=== PATIENT | male | born 1950 | race Caucasian/White ===

== ENCOUNTER 2018-11-02 09:07 | Inpatient (IN) | payer BC ==
[2018-10-30 10:21] VITALS: BMI 32.3
[2018-11-02 10:40] LABS: #Eosinphils 0.3 thou/uL (0.0-0.7); #Lymphocytes 2.6 thou/uL (1.20-3.40); #Monocytes 0.8 thou/uL (0.11-0.59); #Neutrophils 2.4 thou/uL (1.40-6.50); %Basophils 0.5 % (0.0-1.0); %Eosinophils 5.4 % (0.0-10.0); %Lymphocytes 42.5 % (21.0-51.0); %Monocytes 12.5 % (0.0-10.0); %Neutrophils 39.2 % (42.0-75.0); Hemoglobin 14.7 g/dL (14.0-18.0); Mean Corpuscular HGB CONC 35.1 g/dL (32.0-36.0); Mean Corpuscular Hemoglobin 34.7 pg (27.0-31.0); Mean Corpuscular Volume 98.7 fL (78.0-98.0); Mean Platelet Volume 7.9 fL (7.4-10.4); Platelet Count 158 thou/uL (130-400); RBC Distribution Width 10.9 % (11.5-14.5); Red Blood Cell (RBC) Count 4.25 mill/uL (4.70-6.10)
[2018-11-02 10:54] LABS: Anion Gap 11 mmol/L (10-20); BUN (Urea Nitrogen) 16 mg/dL (8.4-25.7); Calc. Creatinine Clearance 81 mL/min (70-130); Calcium 9.4 mg/dL (7.8-10.44); Carbon Dioxide 26 mmol/L (23-31); Chloride 105 mmol/L (98-107); Estimated GFR-MDRD 64; Glucose 88 mg/dL (80-115); Potassium 3.9 mmol/L (3.5-5.1); Sodium 138 mmol/L (136-145)
[2018-11-02] MEDS ORDERED: Fentanyl 100 MCG/2 ML VIAL ONE ×3 (13:06→15:42)
[2018-11-02] MEDS ORDERED: Midazolam HCl 2 mg/2 ml Vial ONE (13:07)
[2018-11-02] MEDS ORDERED: Sodium Chloride 0.9% 10 ML ONE (13:15)
--- NOTE | 2018-11-02 14:55 | OP ---
DATE OF PROCEDURE: 11/02/2018 HARBOR MASTER: Nicho Camargo PA-C PROCEDURE PERFORMED: L4 through S1 laminectomy. DESCRIPTION OF PROCEDURE: The patient was brought to the operating room and intubated. He was rolled in a prone position on gel-filled chest rolls. An incision was made exposing L4 through S1 and the level was confirmed by x-ray. We performed complete L5, inferior L4, and superior S1 laminectomies, completely compressed the affected neural elements. The wound was then extensively irrigated. MAC hemostasis was secured. Vancomycin powder was applied and the wound was closed in anatomic layers over drain. Job ID: [id number]
[2018-11-02] MEDS ORDERED: Promethazine HCl 25 MG/ML VIAL IM/IV PRN (15:59)
[2018-11-02] MEDS ORDERED: Ondansetron HCl/PF 4 MG/2 ML Vial IVP PRN (15:59)
[2018-11-02] MEDS ORDERED: Non-Formulary Medication 1 EACH PO PRN (15:59)
[2018-11-02] MEDS ORDERED: Acetaminophen/Codeine 30-300mg Tablet PO PRN ×2 (16:01)
[2018-11-02] MEDS ORDERED: Mag-Al 1200 mg/1200 mg/30 ML UDCUP PO PRN (16:01)
[2018-11-02] MEDS ORDERED: diphenhydrAMINE 50 MG/ML VIAL IVP PRN (16:01)
[2018-11-02] MEDS ORDERED: HYDROcodone/Acetaminophen 10/325 mg Tablet PO PRN (16:01)
[2018-11-02] MEDS ORDERED: tiZANidine HCl 4 MG TAB PO PRN (16:01)
[2018-11-02] MEDS ORDERED: diphenhydrAMINE 25 MG CAP PO PRN (16:01)
[2018-11-02] MEDS ORDERED: Promethazine HCl 25 MG/ML VIAL IM PRN (16:01)
[2018-11-02] MEDS ORDERED: Milk Of Magnesia 30 ML UDCUP PO PRN (16:01)
[2018-11-02] MEDS ORDERED: Promethazine HCl 12.5 MG SUPP PR PRN (16:01)
[2018-11-02] MEDS ORDERED: Promethazine 25 MG TAB PO PRN (16:01)
[2018-11-02] MEDS ORDERED: traMADol HCl 50 MG TAB PO PRN ×2 (16:01)
[2018-11-02] MEDS ORDERED: Ondansetron PF 4 MG/2 ML Vial SLOW IVP PRN (16:05)
[2018-11-02] MEDS ORDERED: Morphine 2 MG/ML SYRINGE SLOW IVP PRN (16:07)
[2018-11-02] MEDS ORDERED: Morphine 4 MG/ML VIAL SLOW IVP PRN (16:09)
[2018-11-02] MEDS ORDERED: Rocuronium Bromide 10 MG/ML (10ML VIAL) ONE (17:17)
[2018-11-02] MEDS ORDERED: Lidocaine 1% PF 5 ML VIAL ONE (17:17)
[2018-11-02] MEDS ORDERED: Ondansetron PF 4 MG/2 ML Vial ONE (17:17)
[2018-11-02] MEDS ORDERED: PROPOFOL 200 MG/20 ML VIAL ONE (17:17)
[2018-11-02] MEDS ORDERED: Succinylcholine Chloride 20 MG/ML 10 ml SYRINGE FS ONE (17:17)
[2018-11-02] MEDS: Sodium Chloride 0.9% 1,000 ML IV SCH (18:50)
[2018-11-02] MEDS: CEFAZOLIN 2 GM in Premix Bag 1 BAG IVPB SCH (22:22)
[2018-11-02] MEDS: HYDROcodone/Acetaminophen 10/325 mg Tablet PO PRN (23:35)
[2018-11-03] MEDS: CEFAZOLIN 2 GM in Premix Bag 1 BAG IVPB SCH ×3 (05:24→21:27)
[2018-11-03] MEDS: Sodium Chloride 0.9% 1,000 ML IV SCH ×2 (05:24→15:06)
[2018-11-03] MEDS: HYDROcodone/Acetaminophen 10/325 mg Tablet PO PRN ×3 (05:26→21:26)
--- NOTE | 2018-11-03 07:53 | PRG ---
DATE OF SERVICE: 11/03/2018 SUBJECTIVE: The patient is a 68-year-old male, who underwent L4-S1 laminectomy. This is postoperative day #1. Following the surgery, he was transitioned to the Med/Surg floor, where his pain has been well controlled with p.o. medications, he is tolerating regular diet, and he is voiding appropriately. He did have NILS drain placed intraoperatively and has had approximately 130 mL of output overnight. OBJECTIVE: On exam this morning, the patient is sitting up on the side of bed, awake, alert, no acute distress. He has free active range of motion of all extremities. His incision is clean, dry, and intact. There is small amount of dark red blood in the NILS. PLAN: We will plan to continue to monitor the patient additional night and leave NILS additional night. We will continue to mobilize with physical therapy appropriately. I anticipate NILS drain can likely be removed tomorrow and the patient could be discharged at that time. Job ID: [id number]
[2018-11-03] MEDS ORDERED: tiZANidine HCl 4 MG TAB PO PRN (15:55)
[2018-11-03] MEDS: Fish Oil 1,000 MG CAP PO SCH (20:27)
[2018-11-03] MEDS: Carvedilol 3.125 MG TAB PO SCH (20:28)
[2018-11-03] MEDS ORDERED: Losartan 25 MG TAB PO SCH (21:00)
[2018-11-03] MEDS ORDERED: Atorvastatin Calcium 20 MG TAB PO SCH (21:00)
[2018-11-03] MEDS ORDERED: GLUCOSAMINE CHONDROITIN PO SCH (21:00)
[2018-11-04] MEDS: CEFAZOLIN 2 GM in Premix Bag 1 BAG IVPB SCH (05:23)
[2018-11-04] MEDS: HYDROcodone/Acetaminophen 10/325 mg Tablet PO PRN (05:33)
[2018-11-04] MEDS: Sodium Chloride 0.9% 1,000 ML IV SCH (07:30)
[2018-11-04 08:06] VITALS: BP 121/68; TEMP 98.1
[2018-11-04] MEDS: Carvedilol 3.125 MG TAB PO SCH (08:25)
[2018-11-04] MEDS: Fish Oil 1,000 MG CAP PO SCH (08:25)
[2018-11-04] MEDS ORDERED: Ascorbic Acid 500 mg Chewable Tablet PO SCH (09:00)
[2018-11-04] MEDS ORDERED: Losartan 25 MG TAB PO SCH (09:00)
--- NOTE | 2018-11-04 10:14 | DIS ---
DATE OF ADMISSION: 11/02/2018 DATE OF DISCHARGE: 11/04/2018 The patient is a 68-year-old male, recently seen in our office for low back pain and neurogenic claudication, who underwent L4-S1 laminectomy. Following the surgery, he was transitioned to the Med/Surg floor, where his pain was well controlled with p.o. medications, he was tolerating regular diet, and he was voiding appropriately. He did have NILS drain placed intraoperatively, which had initially 140 mL out the first night and this trended down nicely. There was 50 mL of drainage on postoperative night number 2 and was removed on postoperative day #2. I have discussed home care precautions. We will plan to follow up with the patient in 2 weeks. He has been provided with scripts for Dewitt and Zanaflex. Job ID: [id number]
--- NOTE | 2018-11-04 16:40 | EKG ---
Test Reason : PRREOP Blood Pressure : / mmHG Vent. Rate : 054 BPM Atrial Rate : 054 BPM P-R Int : 160 ms QRS Dur : 128 ms QT Int : 472 ms P-R-T Axes : 065 048 -08 degrees QTc Int : 447 ms Sinus bradycardia Left bundle branch block Abnormal ECG No previous ECGs available Confirmed by DR. Wilian MILLIGAN ([id number]) on 11/04/2018 4:39:58 PM Referred By: KAYLEE Confirmed By:DR. Wilian MILLIGAN
== END 2018-11-04 10:30 | disposition home or self-care (01) | DRG 517 ==
LOC: SDC 09:07 → SURG A 15:22
PROVIDERS: ADMIT Neurological Surgery; ATTEND Neurological Surgery
PROC: 01NB0ZZ Release Lumbar Nerve, Open Approach (ICD-10-PCS; principal; 2018-11-02)
PROC: 01NR0ZZ Release Sacral Nerve, Open Approach (ICD-10-PCS; 2018-11-02)
DX: M48.062 Spinal stenosis, lumbar region with neurogenic claudication (principal); I10 Essential (primary) hypertension; E78.5 Hyperlipidemia, unspecified; G47.00 Insomnia, unspecified; Z87.891 Personal history of nicotine dependence; Z98.890 Other specified postprocedural states
CPT/HCPCS: 76000; 80048; 85025; 93005; 93010; J0690; J2001; J2250; J2405; J2704; J3010; J3370; J3490

== ENCOUNTER 2020-01-30 07:25 | Inpatient (IN) | payer MEDICARE ==
[2020-01-30 08:23] LABS: Hemoglobin 12.8 g/dL (14.0-18.0); Mean Corpuscular HGB CONC 33.9 g/dL (32.0-36.0); Mean Corpuscular Hemoglobin 33.7 pg (27.0-31.0); Mean Corpuscular Volume 99.3 fL (78.0-98.0); RBC Distribution Width 10.6 % (11.5-14.5); Red Blood Cell (RBC) Count 3.79 mill/uL (4.70-6.10)
[2020-01-30 08:39] LABS: ALT (SGPT) 35 U/L (8-55); AST (SGOT) 31 U/L (5-34); Albumin 3.5 g/dL (3.4-4.8); Alkaline Phosphatase 52 U/L (40-110); Anion Gap 18 mmol/L (10-20); BUN (Urea Nitrogen) 20 mg/dL (8.4-25.7); Bilirubin, Total 0.6 mg/dL (0.2-1.2); Calc. Creatinine Clearance 0 mL/min (70-130); Calcium 8.1 mg/dL (7.8-10.44); Carbon Dioxide 21 mmol/L (23-31); Chloride 105 mmol/L (98-107); Glucose 137 mg/dL (80-115); Potassium 4.6 mmol/L (3.5-5.1); Protein, Total 6.5 g/dL (5.8-8.1); Sodium 139 mmol/L (136-145)
--- NOTE | 2020-01-30 08:39 | RAD ---
PORTABLE CHEST 1 VIEWS: Date: 01/30/2020 Time: 0753 hours HISTORY: Shortness of breath. Patient recently tested positive for COVID-19. FINDINGS: The heart size is normal. The lungs are well expanded with multifocal patchy opacities bilaterally. N o pneumothoraces or pleural effusions are seen. IMPRESSION: Findings are suspicious for COVID-19 pneumonia. POS: OFF
[2020-01-30] MEDS ORDERED: Dexamethasone 10 MG/ML VIAL ONE (09:01)
[2020-01-30 09:09] LABS: #Lymphocytes 0.8 thou/uL (1.20-3.40); #Monocytes 0.4 thou/uL (0.11-0.59); #Neutrophils 6.8 thou/uL (1.40-6.50); %Basophils 0.3 % (0.0-1.0); %Eosinophils 0.1 % (0.0-10.0); %Lymphocytes 9.7 % (21.0-51.0); %Monocytes 4.5 % (0.0-10.0); %Neutrophils 85.4 % (42.0-75.0); Mean Platelet Volume 7.7 fL (7.4-10.4); Platelet Count 113 thou/uL (130-400); Platelet Morphology Comment Appears Decreased
[2020-01-30] MEDS ORDERED: Acetaminophen 325 MG TAB PO PRN (13:00)
[2020-01-30] MEDS ORDERED: Ondansetron ODT 4 MG TAB SL PRN (13:00)
[2020-01-30] MEDS ORDERED: Ondansetron PF 4 MG/2 ML Vial IVP PRN ×2 (13:00→13:19)
[2020-01-30] MEDS ORDERED: Ondansetron ODT 4 MG TAB PO PRN (13:19)
[2020-01-30] MEDS ORDERED: Enoxaparin Sodium 40 MG/0.4 ML SYRINGE SC SCH (13:19)
[2020-01-30] MEDS ORDERED: hydrALAZINE 20 MG/ML VIAL SLOW IVP PRN (13:19)
[2020-01-30] MEDS ORDERED: Albuterol Sulfate 2.5 mg/3 ml Neb NEB SCH (14:15)
[2020-01-30] MEDS ORDERED: Albuterol 200 PUFF (6.7GM INHALER) INH SCH (15:00)
[2020-01-30] MEDS: cefTRIAXone\\ROCEPHIN 2 GM in Sodium Chloride 0.9% 100 ML IVPB SCH (15:09)
--- NOTE | 2020-01-30 15:24 | HP ---
PRIMARY CARE PROVIDER: Young Gallagher MD CHIEF COMPLAINT: Shortness of breath. HISTORY OF PRESENT ILLNESS: This is a 69-year-old male who presents to [facility] Emergency Department complaining of 2- to 3-day history of increasing shortness of breath, worsening in the last 24 hours. The patient's history is significant for COVID-19 diagnosis on 01/27/2020 after his tested positive. The patient states multiple family members have tested positive for COVID-19, but thought that he could deal with the virus at home. The patient noted increased shortness of breath with minimal exertion, especially walking, that became progressive, prompting him to seek medical attention and called EMS personnel. The patient's O2 saturation was noted in the mid 80% range on room air, at which point the patient was placed on oxygen supplementation and transported to the emergency room for evaluation. Chest imaging performed in the emergency room showed bilateral patchy infiltrates, consistent with a COVID-19 pneumonia. In the emergency room, the patient received IV dexamethasone 6 mg x1 and was referred to the hospitalist service for evaluation. PAST MEDICAL HISTORY: 1. Hypertension. 2. Hyperlipidemia. 3. Question of sleep apnea. 4. Lumbar disk disease. PAST SURGICAL HISTORY: Status post L4 through S1 laminectomy. CURRENT MEDICATIONS: 1. Enteric-coated aspirin 81 mg p.o. daily. 2. Lipitor 10 mg p.o. nightly. 3. Candesartan 32 mg p.o. nightly. 4. Carvedilol 3.125 mg p.o. b.i.d. 5. [place]-3 fatty acids 2000 mg p.o. b.i.d. 6. Vitamin C 500 mg p.o. daily. ALLERGIES: NO KNOWN DRUG ALLERGIES. FAMILY HISTORY: Positive for hypertension. SOCIAL HISTORY: Resides in [place], [place]. Retired. . No current alcohol, tobacco, or illicit drug use. REVIEW OF SYSTEMS: CONSTITUTIONAL: Negative for weight loss or gain, ability to conduct usual activities. SKIN: Negative for rash, itching. EYES: Negative for double vision, pain. ENT/MOUTH: Negative for nose bleeding, neck stiffness, pain, tenderness. CARDIOVASCULAR: Negative for palpitations, dyspnea on exertion, orthopnea. RESPIRATORY: Negative for wheezing, cough, hemoptysis, fever or night sweats. GASTROINTESTINAL: Negative for poor appetite, abdominal pain, heartburn, nausea, vomiting, constipation, or diarrhea. GENITOURINARY: Negative for urgency, frequency, dysuria, nocturia. MUSCULOSKELETAL: Negative for pain, swelling. NEUROLOGIC/PSYCHIATRIC: Negative for anxiety, depression. ALLERGY/IMMUNOLOGIC: Negative for skin rash, bleeding tendency. Otherwise negative except as stated per HPI. PHYSICAL EXAMINATION: VITAL SIGNS ON ADMISSION: Blood pressure 159/91, pulse 73, respiratory rate 17, temperature 98.8 degrees Fahrenheit, O2 saturation 97% on 4 L/minute by nasal cannula. GENERAL APPEARANCE: This is a 69-year-old male, alert and oriented x3, pleasant, responsive, in no acute distress. HEENT: Pupils are equal, round, and reactive to light and accommodation. Extraocular muscles are intact. No scleral icterus. No conjunctival injection. Nares patent. OP is clear. Teeth in good repair. NECK: Supple. No cervical adenopathy. No thyromegaly. No carotid bruits. No JVD appreciated. Cervical spine with full active and passive range of motion. No meningeal signs noted. CHEST: Scattered rhonchi bilaterally with diminished breath sounds in the bases. Positive tachypnea. CARDIOVASCULAR: S1 and S2 without noted murmur, rub, or gallop. ABDOMEN: Rounded, soft, nontender, and nondistended. Bowel sounds are positive in all 4 quadrants. There is no hepatosplenomegaly. No abdominal bruits. No rebound or guarding appreciated. EXTREMITIES: Warm and dry with fair turgor. No clubbing, cyanosis, or asymmetric edema appreciated. Pulses palpable distally at the dorsalis pedis, posterior tibial, and popliteal arteries bilaterally. Capillary refill less than 2 seconds. NEUROLOGIC: Cranial nerves 2 through 12 are grossly intact. No focal or lateralizing signs appreciated. PERTINENT LABORATORY AND X-RAY FINDINGS: Sodium 139, potassium 4.6, chloride 105, CO2 of 21, BUN 20, creatinine 0.99, and glucose 137. Lactic acid level 1.5. LFTs within normal limits. Troponin-I negative x1. CBC showed a white blood cell count of 8.0, hemoglobin 13, hematocrit 38, MCV 99, and platelet count 113 with 85% neutrophils. Portable chest x-ray dated 01/30/2020 showed multifocal patchy infiltrates bilaterally. EKG dated 01/30/2020 by my interpretation shows incomplete left bundle-branch block pattern with heart rates in the 70s. ASSESSMENT AND PLAN: 1. Pneumonia due to COVID-19. The patient will be admitted to the medical floor. We will continue Rocephin 2 g IV daily with additional Zithromax 500 mg IV daily. Dexamethasone 8 mg IV daily. Albuterol metered-dose inhaler two puffs q.4 h. p.r.n. Initiate vitamin C 1000 mg daily and zinc sulfate 220 mg daily. Continue isolation per protocol. Consider remdesivir if clinically declining. Assess for home oxygen needs. 2. Acute hypoxic respiratory failure secondary to #1. Continue oxygen supplementation as outlined previously. Assess for home oxygen requirement. 3. Hypertension, labile. Resume home blood pressure regimen and monitor clinical response. P.r.n. hydralazine IV. 4. Hyperlipidemia. Resume Lipitor 10 mg nightly. 5. Prophylaxis. Sequential compression devices while in bed. Lovenox 40 mg subcutaneously daily. Isolation protocol. 6. Code status is full. Surrogate medical decision maker is the patient's spouse. Job ID: [id number]
[2020-01-30] MEDS: Azithromycin 500 MG in Sodium Chloride 0.9% 250 ML 250 ML IVPB SCH (16:00)
[2020-01-30 17:30] VITALS: BMI 31.5
[2020-01-30] MEDS: Albuterol 200 PUFF (6.7GM INHALER) INH SCH (18:06)
[2020-01-30] MEDS: Famotidine 20 MG TAB PO SCH (20:02)
[2020-01-30] MEDS: Carvedilol 3.125 MG TAB PO SCH (20:02)
[2020-01-30] MEDS: Losartan 25 MG TAB PO SCH (20:02)
[2020-01-31] MEDS: Albuterol 200 PUFF (6.7GM INHALER) INH SCH ×7 (00:46→22:16)
[2020-01-31] MEDS: Ascorbic Acid 500 mg Chewable Tablet PO SCH (07:55)
[2020-01-31] MEDS: Carvedilol 3.125 MG TAB PO SCH ×2 (07:55→20:12)
[2020-01-31] MEDS: Enoxaparin Sodium 40 MG/0.4 ML SYRINGE SC SCH (07:56)
[2020-01-31] MEDS: Dexamethasone 4 mg/ml Vial SLOW IVP SCH (07:56)
[2020-01-31] MEDS: Zinc Sulfate 220 MG CAP PO SCH (07:56)
[2020-01-31] MEDS: Famotidine 20 MG TAB PO SCH ×2 (07:56→20:12)
[2020-01-31] MEDS ORDERED: FLU VACC QS2020-21(65YR UP)/PF 240 MCG/0.7 ML SYRINGE IM ONE (09:00)
--- NOTE | 2020-01-31 09:55 | PDOC.HOSPP ---
- Subjective Encounter Date: 01/31/20 Encounter Time: 09:30 Subjective: f/u for COVID PNA on Decadron/Zithromax/Rocephin/Albuterol/O2/Vit C/Zinc. Overall feeling better but SOB with minimal activity. - Objective Vital Signs & Weight: Vital Signs (12 hours) Temp Pulse Resp BP Pulse Ox 01/31/20 08:16 98.1 F 71 20 131/76 98 01/31/20 05:28 98 01/31/20 04:51 98.2 F 60 20 115/76 98 01/31/20 00:00 98.4 F 64 20 136/79 96 Weight Weight 201 lb 3.102 oz I&O: 01/30/20 01/31/20 02/01/20 06:59 06:59 06:59 Intake Total 1000 Output Total 1000 Balance 0 Result Diagrams: 01/30/20 08:06 01/30/20 08:06 Radiology Reviewed by me: Yes (PCXR - patchy infiltrates bilat) Hospitalist ROS - Medication Medications: Active Medications Generic Name Dose Route Start Last Admin Trade Name Freq PRN Reason Stop Dose Admin Albuterol Sulfate 2 puff 01/30/20 19:00 01/31/20 06:36 Albuterol 200 Puff (6.7gm Inhaler) INH 2 puff [id number] PURVI Administration Ascorbic Acid 1,000 mg 01/31/20 09:00 01/31/20 07:55 Ascorbic Acid 500 Mg Chewable Tablet PO 1,000 mg DAILY PURVI Administration Carvedilol 3.125 mg 01/30/20 21:00 01/31/20 07:55 Carvedilol 3.125 Mg Tab PO 3.125 mg BID PURVI Administration Dexamethasone 8 mg 01/31/20 09:00 01/31/20 07:56 Dexamethasone 4 Mg/Ml Vial SLOW IVP 8 mg DAILY PURVI Administration Enoxaparin Sodium 40 mg 01/31/20 09:00 01/31/20 07:56 Enoxaparin Sodium 40 Mg/0.4 Ml Syringe SC 40 mg 0900 PURVI Administration Famotidine 20 mg 01/30/20 21:00 01/31/20 07:56 Famotidine 20 Mg Tab PO 20 mg BID PURVI Administration Azithromycin 500 mg/ Sodium 250 mls @ 250 mls/hr 01/30/20 15:00 01/30/20 16:00 Chloride IVPB 250 mls Q24HR PURVI Administration Ceftriaxone Sodium 2 gm/ 100 mls @ 200 mls/hr 01/30/20 14:00 01/30/20 15:09 Sodium Chloride IVPB 100 mls Q24HR PURVI Administration Losartan Potassium 100 mg 01/30/20 21:00 01/30/20 20:02 Losartan 25 Mg Tab PO 100 mg HS PURVI Administration Zinc Sulfate 220 mg 01/31/20 09:00 01/31/20 07:56 Zinc Sulfate 220 Mg Cap PO 220 mg DAILY PURVI Administration - Exam General Appearance: NAD, awake alert Eye: PERRL, anicteric sclera ENT: normocephalic atraumatic, no oropharyngeal lesions Neck: supple, symmetric, no JVD, no thyromegaly, no lymphadenopathy Heart: RRR, no murmur, no gallops, no rubs, normal peripheral pulses Heart - other findings: S1, S2 Respiratory: tachypneic Respiratory - other findings: diminished in bases, few rhonchi Gastrointestinal: soft, non-tender, non-distended, normal bowel sounds, no palpable masses Extremities: no cyanosis, no clubbing, no edema Skin: normal turgor, no lesions, no rashes Neurological: cranial nerve grossly intact, no new deficit Musculoskeletal: normal tone, normal strength, no muscle wasting Psychiatric: normal affect, A&O x 3 Hosp A/P (1) Pneumonia due to COVID-19 virus Code(s): U07.1 - COVID-19; J12.89 - OTHER VIRAL PNEUMONIA Status: Acute (2) Acute respiratory failure with hypoxia Code(s): J96.01 - ACUTE RESPIRATORY FAILURE WITH HYPOXIA Status: Acute Plan: Continue O2 supplementation, may need home O2 (3) Thrombocytopenia Code(s): D69.6 - THROMBOCYTOPENIA, UNSPECIFIED Status: Acute Plan: Mild, serial monitoring, hold anticoagulants (4) HTN (hypertension) Code(s): I10 - ESSENTIAL (PRIMARY) HYPERTENSION Status: Chronic Qualifiers: Hypertension type: essential hypertension Qualified Code(s): I10 - Essential (primary) hypertension Plan: Resume home BP meds, serial monitoring (5) HLD (hyperlipidemia) Code(s): E78.5 - HYPERLIPIDEMIA, UNSPECIFIED Status: Chronic - Plan continue antibiotics, home health care social worker, respiratory therapy, out of bed/ambulate, DVT proph w/SCDs Stable currently Continue Decadron Continue Rocephin/Zithromax Change Albuterol MDI q4h OOB/ambulate Consider home O2 AM lab: CBC
[2020-01-31] MEDS ORDERED: Albuterol 200 PUFF (6.7GM INHALER) INH SCH (10:15)
[2020-01-31] MEDS: cefTRIAXone\\ROCEPHIN 2 GM in Sodium Chloride 0.9% 100 ML IVPB SCH (14:53)
[2020-01-31] MEDS: Azithromycin 500 MG in Sodium Chloride 0.9% 250 ML 250 ML IVPB SCH (15:54)
[2020-01-31] MEDS: Losartan 25 MG TAB PO SCH (20:11)
[2020-02-01] MEDS: Albuterol 200 PUFF (6.7GM INHALER) INH SCH ×6 (02:45→22:10)
[2020-02-01 06:07] LABS: #Lymphocytes 1.2 thou/uL (1.20-3.40); #Monocytes 0.7 thou/uL (0.11-0.59); #Neutrophils 7.9 thou/uL (1.40-6.50); %Basophils 0.1 % (0.0-1.0); %Eosinophils 0.3 % (0.0-10.0); %Lymphocytes 12.5 % (21.0-51.0); %Monocytes 7.5 % (0.0-10.0); %Neutrophils 79.6 % (42.0-75.0); Hemoglobin 13.2 g/dL (14.0-18.0); Mean Corpuscular HGB CONC 34.1 g/dL (32.0-36.0); Mean Corpuscular Hemoglobin 34.2 pg (27.0-31.0); Mean Platelet Volume 7.4 fL (7.4-10.4); Platelet Count 267 thou/uL (130-400); RBC Distribution Width 10.4 % (11.5-14.5); Red Blood Cell (RBC) Count 3.86 mill/uL (4.70-6.10); White Blood Cell (WBC) Count 9.9 thou/uL (4.8-10.8)
[2020-02-01] MEDS: Famotidine 20 MG TAB PO SCH ×2 (07:56→20:05)
[2020-02-01] MEDS: Dexamethasone 4 mg/ml Vial SLOW IVP SCH (07:57)
[2020-02-01] MEDS: Enoxaparin Sodium 40 MG/0.4 ML SYRINGE SC SCH (07:57)
[2020-02-01] MEDS: Zinc Sulfate 220 MG CAP PO SCH (07:57)
[2020-02-01] MEDS: Carvedilol 3.125 MG TAB PO SCH ×2 (07:57→20:05)
[2020-02-01] MEDS: Ascorbic Acid 500 mg Chewable Tablet PO SCH (08:00)
--- NOTE | 2020-02-01 12:46 | PDOC.HOSPP ---
- Subjective Encounter Date: 02/01/20 Encounter Time: 12:05 Subjective: f/u for COVID PNA on 2L/min NC. Feels weak and fatigued. Appetite ok. Some loose stool overnight. Receiving Zithromax/Dexamethasone/Vit C/Zinc. - Objective Vital Signs & Weight: Vital Signs (12 hours) Temp Pulse Resp BP Pulse Ox 02/01/20 07:55 98.4 F 66 20 129/78 93 L 02/01/20 06:16 124/72 92 L Weight Weight 201 lb 3.102 oz I&O: 01/31/20 02/01/20 02/02/20 06:59 06:59 06:59 Intake Total 1000 1310 Output Total 1000 2650 Balance 0 -1340 Result Diagrams: 02/01/20 05:50 01/30/20 08:06 Hospitalist ROS - Medication Medications: Active Medications Generic Name Dose Route Start Last Admin Trade Name Freq PRN Reason Stop Dose Admin Albuterol Sulfate 2 puff 01/31/20 10:30 02/01/20 09:25 Albuterol 200 Puff (6.7gm Inhaler) INH 2 puff [id number] PURVI Administration Ascorbic Acid 1,000 mg 01/31/20 09:00 02/01/20 08:00 Ascorbic Acid 500 Mg Chewable Tablet PO 1,000 mg DAILY PURVI Administration Carvedilol 3.125 mg 01/30/20 21:00 02/01/20 07:57 Carvedilol 3.125 Mg Tab PO 3.125 mg BID PURVI Administration Dexamethasone 8 mg 01/31/20 09:00 02/01/20 07:57 Dexamethasone 4 Mg/Ml Vial SLOW IVP 8 mg DAILY PURVI Administration Enoxaparin Sodium 40 mg 01/31/20 09:00 02/01/20 07:57 Enoxaparin Sodium 40 Mg/0.4 Ml Syringe SC 40 mg 0900 PURVI Administration Famotidine 20 mg 01/30/20 21:00 02/01/20 07:56 Famotidine 20 Mg Tab PO 20 mg BID PURVI Administration Azithromycin 500 mg/ Sodium 250 mls @ 250 mls/hr 01/30/20 15:00 01/31/20 15:54 Chloride IVPB 250 mls Q24HR PURVI Administration Ceftriaxone Sodium 2 gm/ 100 mls @ 200 mls/hr 01/30/20 14:00 01/31/20 14:53 Sodium Chloride IVPB 100 mls Q24HR PURVI Administration Losartan Potassium 100 mg 01/30/20 21:00 01/31/20 20:11 Losartan 25 Mg Tab PO 100 mg HS PURVI Administration Zinc Sulfate 220 mg 01/31/20 09:00 02/01/20 07:57 Zinc Sulfate 220 Mg Cap PO 220 mg DAILY PURVI Administration - Exam General Appearance: NAD, awake alert Eye: PERRL, anicteric sclera ENT: normocephalic atraumatic, no oropharyngeal lesions Neck: supple, symmetric, no JVD, no thyromegaly, no lymphadenopathy Heart: RRR, no murmur, no gallops, no rubs, normal peripheral pulses Heart - other findings: S1, S2 Respiratory: no wheezes, normal chest expansion, no tachypnea Respiratory - other findings: scattered rhonchi Gastrointestinal: soft, non-tender, non-distended, normal bowel sounds, no palpable masses Extremities: no cyanosis, no clubbing, no edema Skin: normal turgor, no lesions Neurological: cranial nerve grossly intact, no new deficit Musculoskeletal: normal tone, normal strength, no muscle wasting Psychiatric: normal affect, A&O x 3 Hosp A/P (1) Pneumonia due to COVID-19 virus Code(s): U07.1 - COVID-19; J12.89 - OTHER VIRAL PNEUMONIA Status: Acute Plan: Continue Rocephin/Zithromax/Dexamethasone/Vit C/Zinc/O2, isolation protocol (2) Acute respiratory failure with hypoxia Code(s): J96.01 - ACUTE RESPIRATORY FAILURE WITH HYPOXIA Status: Acute Plan: Continue low-volume O2 supplementation, may need home O2 (3) Thrombocytopenia Code(s): D69.6 - THROMBOCYTOPENIA, UNSPECIFIED Status: Acute Plan: Resolving (4) HTN (hypertension) Code(s): I10 - ESSENTIAL (PRIMARY) HYPERTENSION Status: Chronic Qualifiers: Hypertension type: essential hypertension Qualified Code(s): I10 - Essenti al (primary) hypertension (5) HLD (hyperlipidemia) Code(s): E78.5 - HYPERLIPIDEMIA, UNSPECIFIED Status: Chronic - Plan continue antibiotics, social media strategist, respiratory therapy, out of bed/ambulate, DVT proph w/SCDs Stable currently Continue Decadron Continue Rocephin/Zithromax Change Albuterol MDI q4h OOB/ambulate Consider home O2 Continue Dexamethasone
[2020-02-01] MEDS: cefTRIAXone\\ROCEPHIN 2 GM in Sodium Chloride 0.9% 100 ML IVPB SCH (13:20)
[2020-02-01] MEDS: Azithromycin 500 MG in Sodium Chloride 0.9% 250 ML 250 ML IVPB SCH (15:03)
[2020-02-01] MEDS: Benzonatate 100 MG CAP PO PRN (20:05)
[2020-02-01] MEDS: Losartan 25 MG TAB PO SCH (20:05)
[2020-02-02] MEDS: Albuterol 200 PUFF (6.7GM INHALER) INH SCH ×6 (03:00→22:00)
[2020-02-02] MEDS: Benzonatate 100 MG CAP PO PRN ×3 (04:40→20:19)
[2020-02-02] MEDS: Zinc Sulfate 220 MG CAP PO SCH (08:10)
[2020-02-02] MEDS: Carvedilol 3.125 MG TAB PO SCH ×2 (08:10→20:19)
[2020-02-02] MEDS: Dexamethasone 4 mg/ml Vial SLOW IVP SCH (08:10)
[2020-02-02] MEDS: Ascorbic Acid 500 mg Chewable Tablet PO SCH (08:10)
[2020-02-02] MEDS: Enoxaparin Sodium 40 MG/0.4 ML SYRINGE SC SCH (08:10)
[2020-02-02] MEDS: Famotidine 20 MG TAB PO SCH ×2 (08:10→20:18)
[2020-02-02] MEDS: Guaifenesin DM 100-10/5 ML UDCUP PO PRN ×2 (08:11→16:47)
[2020-02-02 09:36] LABS: Anion Gap 17 mmol/L (10-20); BUN (Urea Nitrogen) 25 mg/dL (8.4-25.7); Calc. Creatinine Clearance 90 mL/min (70-130); Calcium 8.2 mg/dL (7.8-10.44); Carbon Dioxide 17 mmol/L (23-31); Chloride 105 mmol/L (98-107); Glucose 111 mg/dL (80-115); Potassium 4.2 mmol/L (3.5-5.1); Sodium 135 mmol/L (136-145)
[2020-02-02 09:52] LABS: Hemoglobin 13.9 g/dL (14.0-18.0); Lymphocytes 14 % (21-51); MDiff Complete? YES; Mean Corpuscular HGB CONC 34.1 g/dL (32.0-36.0); Mean Corpuscular Hemoglobin 34.1 pg (27.0-31.0); Mean Platelet Volume 8.5 fL (7.4-10.4); Monocytes 4 % (0-10); Neutrophil 82 % (42-75); Platelet Count 305 thou/uL (130-400); Platelet Morphology Comment Appears Adequate; RBC Distribution Width 10.7 % (11.5-14.5); RBC Morphology Normal; Red Blood Cell (RBC) Count 4.09 mill/uL (4.70-6.10); White Blood Cell (WBC) Count 9.9 thou/uL (4.8-10.8)
--- NOTE | 2020-02-02 10:08 | PDOC.HOSPP ---
- Subjective Encounter Date: 02/02/20 Encounter Time: 10:00 Subjective: f/u for COVID PNA/hypoxia on current Zithromax/Rocephin/Dexamethasone/Vit C/Zinc. O2 increased from 2.5 to 3L/min NC. Still feeling weak and SOB with activity. No fever documented. Pt not happy with losing his IV site and having to wait to get another one. - Objective Vital Signs & Weight: Vital Signs (12 hours) Temp Pulse Resp BP Pulse Ox 02/02/20 07:37 98 F 70 14 134/79 92 L 02/02/20 04:39 98.8 F 67 19 132/63 95 Weight Weight 201 lb 3.102 oz I&O: 02/01/20 02/02/20 02/03/20 06:59 06:59 06:59 Intake Total 1310 1830 Output Total 2650 850 Balance -1340 980 Result Diagrams: 02/02/20 09:00 02/02/20 09:00 Additional Labs: Laboratory Tests 02/02/20 02/02/20 09:00 09:00 Ferritin 941.06 H C-Reactive Protein 2.06 H Laboratory Tests 02/02/20 09:00 D-Dimer 2.19 H Hospitalist ROS - Medication Medications: Active Medications Generic Name Dose Route Start Last Admin Trade Name Freq PRN Reason Stop Dose Admin Albuterol Sulfate 2 puff 01/31/20 10:30 02/02/20 06:28 Albuterol 200 Puff (6.7gm Inhaler) INH 2 puff [id number] PURVI Administration Ascorbic Acid 1,000 mg 01/31/20 09:00 02/02/20 08:10 Ascorbic Acid 500 Mg Chewable Tablet PO 1,000 mg DAILY PURVI Administration Benzonatate 100 mg 01/30/20 13:19 02/02/20 04:40 Benzonatate 100 Mg Cap PO 100 mg Q6H PRN Administration Cough Carvedilol 3.125 mg 01/30/20 21:00 02/02/20 08:10 Carvedilol 3.125 Mg Tab PO 3.125 mg BID PURVI Administration Dexamethasone 8 mg 01/31/20 09:00 02/02/20 08:10 Dexamethasone 4 Mg/Ml Vial SLOW IVP 8 mg DAILY PURVI Administration Enoxaparin Sodium 40 mg 01/31/20 09:00 02/02/20 08:10 Enoxaparin Sodium 40 Mg/0.4 Ml Syringe SC 40 mg 0900 PURVI Administration Famotidine 20 mg 01/30/20 21:00 02/02/20 08:10 Famotidine 20 Mg Tab PO 20 mg BID PURVI Administration Guaifenesin/Dextromethorphan 15 ml 01/30/20 13:19 02/02/20 08:11 Guaifenesin Dm 100-10/5 Ml Udcup PO 15 ml Q4H PRN Administration Cough Azithromycin 500 mg/ Sodium 250 mls @ 250 mls/hr 01/30/20 15:00 02/01/20 15:03 Chloride IVPB 250 mls Q24HR PURVI Administration Ceftriaxone Sodium 2 gm/ 100 mls @ 200 mls/hr 01/30/20 14:00 02/01/20 13:20 Sodium Chloride IVPB 100 mls Q24HR PURVI Administration Losartan Potassium 100 mg 01/30/20 21:00 02/01/20 20:05 Losartan 25 Mg Tab PO 100 mg HS PURVI Administration Zinc Sulfate 220 mg 01/31/20 09:00 02/02/20 08:10 Zinc Sulfate 220 Mg Cap PO 220 mg DAILY PURVI Administration - Exam General Appearance: NAD, awake alert Eye: PERRL, anicteric sclera ENT: normocephalic atraumatic, no oropharyngeal lesions Neck: supple, symmetric, no JVD, no thyromegaly, no lymphadenopathy Heart: RRR, no murmur, no gallops, no rubs, normal peripheral pulses Heart - other findings: S1, S2 Respiratory: no tachypnea Respiratory - other findings: few basilar rhonchi Gastrointestinal: soft, non-tender, non-distended, normal bowel sounds, no palpable masses Extremities: no cyanosis, no clubbing, no edema Skin: normal turgor, no lesions Neurological: cranial nerve grossly intact, no new deficit Musculoskeletal: normal tone, normal strength, no muscle wasting Psychiatric: normal affect, A&O x 3 Hosp A/P (1) Pneumonia due to COVID-19 virus Code(s): U07.1 - COVID-19; J12.89 - OTHER VIRAL PNEUMONIA Status: Acute Plan: Continue Rocephin/Zithromax/Dexamethasone/Vit C/Zinc/O2 via NC, isolation protocol, start Remdesivir IV today (2) Acute respiratory failure with hypoxia Code(s): J96.01 - ACUTE RESPIRATORY FAILURE WITH HYPOXIA Status: Acute Plan: Continue O2 supplementation, likely will need home O2 (3) Thrombocytopenia Code(s): D69.6 - THROMBOCYTOPENIA, UNSPECIFIED Status: Acute Plan: Resolved, serial monitoring (4) HTN (hypertension) Code(s): I10 - ESSENTIAL (PRIMARY) HYPERTENSION Status: Chronic Qualifiers: Hypertension type: essential hypertension Qualified Code(s): I10 - Essential (primary) hypertension (5) HLD (hyperlipidemia) Code(s): E78.5 - HYPERLIPIDEMIA, UNSPECIFIED Status: Chronic - Plan plan discussed w/ family, continue antibiotics, protective services social worker, respiratory therapy, incentive spirometry, DVT proph w/SCDs Stable currently Continue Decadron Continue Rocephin/Zithromax Change Albuterol MDI q4h OOB/ambulate Consider home O2 for d/c Start Remdesivir today Continue Dexamethasone AM lab: CMP, Ferritin, D-dimer, CRP
[2020-02-02] MEDS ORDERED: REMDESIVIR (EUA) 200 MG in Sodium Chloride 0.9% 250 ML 210 ML IV SCH (11:00)
[2020-02-02] MEDS: cefTRIAXone\\ROCEPHIN 2 GM in Sodium Chloride 0.9% 100 ML IVPB SCH (13:23)
[2020-02-02] MEDS: Azithromycin 500 MG in Sodium Chloride 0.9% 250 ML 250 ML IVPB SCH (16:45)
[2020-02-02] MEDS: Losartan 25 MG TAB PO SCH (20:18)
[2020-02-02] MEDS: Acetaminophen 500 MG TAB PO PRN (20:21)
[2020-02-03] MEDS: Albuterol 200 PUFF (6.7GM INHALER) INH SCH ×6 (01:45→21:45)
[2020-02-03 06:26] LABS: ALT (SGPT) 29 U/L (8-55); AST (SGOT) 18 U/L (5-34); Albumin 3.1 g/dL (3.4-4.8); Alkaline Phosphatase 45 U/L (40-110); Anion Gap 13 mmol/L (10-20); BUN (Urea Nitrogen) 22 mg/dL (8.4-25.7); Bilirubin, Total 0.6 mg/dL (0.2-1.2); Calc. Creatinine Clearance 99 mL/min (70-130); Calcium 8.1 mg/dL (7.8-10.44); Carbon Dioxide 22 mmol/L (23-31); Chloride 106 mmol/L (98-107); Glucose 102 mg/dL (80-115); Potassium 4.1 mmol/L (3.5-5.1); Protein, Total 6.1 g/dL (5.8-8.1); Sodium 137 mmol/L (136-145)
--- NOTE | 2020-02-03 08:55 | PDOC.HOSPP ---
- Subjective Encounter Date: 02/03/20 Encounter Time: 08:45 Subjective: f/u for COVID PNA/hypoxia on O2 @ 2L/min NC and receiving Zithromax/Rocephin/Remdesivir/Albuterol/Vit C/Zinc. No new issues reported. - Objective Vital Signs & Weight: Vital Signs (12 hours) Temp Pulse Resp BP Pulse Ox 02/03/20 05:15 98.5 F 67 19 122/75 97 02/03/20 00:00 62 19 98 Weight Weight 201 lb 3.102 oz I&O: 02/02/20 02/03/20 02/04/20 06:59 06:59 06:59 Intake Total 1830 860 Output Total 850 Balance 980 860 Result Diagrams: 02/02/20 09:00 02/03/20 05:38 Additional Labs: Laboratory Tests 02/02/20 02/02/20 02/02/20 09:00 09:00 09:00 D-Dimer 2.19 H Ferritin 941.06 H C-Reactive Protein 2.06 H Hospitalist ROS - Medication Medications: Active Medications Generic Name Dose Route Start Last Admin Trade Name Freq PRN Reason Stop Dose Admin Acetaminophen 1,000 mg 01/30/20 13:19 02/02/20 20:21 Acetaminophen 500 Mg Tab PO 1,000 mg Q6H PRN Administration Mild Pain (1-3) Albuterol Sulfate 2 puff 01/31/20 10:30 02/03/20 05:40 Albuterol 200 Puff (6.7gm Inhaler) INH 2 puff [id number] PURVI Administration Ascorbic Acid 1,000 mg 01/31/20 09:00 02/02/20 08:10 Ascorbic Acid 500 Mg Chewable Tablet PO 1,000 mg DAILY PURVI Administration Benzonatate 100 mg 01/30/20 13:19 02/02/20 20:19 Benzonatate 100 Mg Cap PO 100 mg Q6H PRN Administration Cough Carvedilol 3.125 mg 01/30/20 21:00 02/02/20 20:19 Carvedilol 3.125 Mg Tab PO 3.125 mg BID PURVI Administration Dexamethasone 8 mg 01/31/20 09:00 02/02/20 08:10 Dexamethasone 4 Mg/Ml Vial SLOW IVP 8 mg DAILY PURVI Administration Enoxaparin Sodium 40 mg 01/31/20 09:00 02/02/20 08:10 Enoxaparin Sodium 40 Mg/0.4 Ml Syringe SC 40 mg 0900 PURVI Administration Famotidine 20 mg 01/30/20 21:00 02/02/20 20:18 Famotidine 20 Mg Tab PO 20 mg BID PURVI Administration Guaifenesin/Dextromethorphan 15 ml 01/30/20 13:19 02/02/20 16:47 Guaifenesin Dm 100-10/5 Ml Udcup PO 15 ml Q4H PRN Administration Cough Azithromycin 500 mg/ Sodium 250 mls @ 250 mls/hr 01/30/20 15:00 02/02/20 16:45 Chloride IVPB 250 mls Q24HR PURVI Administration Ceftriaxone Sodium 2 gm/ 100 mls @ 200 mls/hr 01/30/20 14:00 02/02/20 13:23 Sodium Chloride IVPB 100 mls Q24HR PURVI Administration Losartan Potassium 100 mg 01/30/20 21:00 02/02/20 20:18 Losartan 25 Mg Tab PO 100 mg HS PURVI Administration Sodium Chloride 10 ml 02/02/20 21:00 02/02/20 20:19 Flush - Normal Saline 10 Ml Syringe IVF 10 ml Q12HR PURVI Administration Zinc Sulfate 220 mg 01/31/20 09:00 02/02/20 08:10 Zinc Sulfate 220 Mg Cap PO 220 mg DAILY PURVI Administration - Exam General Appearance: NAD, awake alert Eye: PERRL, anicteric sclera ENT: normocephalic atraumatic, no oropharyngeal lesions Neck: supple, symmetric, no JVD, no thyromegaly, no lymphadenopathy Heart: RRR, no murmur, no gallops, no rubs, normal peripheral pulses Heart - other findings: S1, S2 Respiratory: no rales, no tachypnea Respiratory - other findings: few rhochi in bases Gastrointestinal: soft, non-tender, non-distended, normal bowel sounds, no palpable masses Extremities: no cyanosis, no clubbing, no edema Skin: normal turgor, no lesions Neurological: cranial nerve grossly intact, no new deficit Musculoskeletal: normal tone, normal strength, no muscle wasting Psychiatric: normal affect, A&O x 3 Hosp A/P (1) Pneumonia due to COVID-19 virus Code(s): U07.1 - COVID-19; J12.89 - OTHER VIRAL PNEUMONIA Status: Acute Plan: Continue Remdesivir/Rocephin/Zithromax/Albuterol/Vit C/Zinc, isolation protocol (2) Acute respiratory failure with hypoxia Code(s): J96.01 - ACUTE RESPIRATORY FAILURE WITH HYPOXIA Status: Acute Plan: O2 supplementation, assess for home O2 use (3) Thrombocytopenia Code(s): D69.6 - THROMBOCYTOPENIA, UNSPECIFIED Status: Acute Plan: Resolved (4) HTN (hypertension) Code(s): I10 - ESSENTIAL (PRIMARY) HYPERTENSION Status: Chronic Qualifiers: Hypertension type: essential hypertension Qualified Code(s): I10 - Essential (primary) hypertension (5) HLD (hyperlipidemia) Code(s): E78.5 - HYPERLIPIDEMIA, UNSPECIFIED Status: Chronic - Plan continue antibiotics, social work job titles, respiratory therapy, incentive s pirometry, out of bed/ambulate, DVT proph w/SCDs Stable currently Continue Decadron Continue Rocephin/Zithromax Change Albuterol MDI q4h OOB/ambulate Consider home O2 for d/c Continue Remdesivir today Continue Dexamethasone AM lab: Ferritin, D-dimer, CRP
[2020-02-03] MEDS: Ascorbic Acid 500 mg Chewable Tablet PO SCH (09:12)
[2020-02-03] MEDS: Benzonatate 100 MG CAP PO PRN ×3 (09:12→20:22)
[2020-02-03] MEDS: Carvedilol 3.125 MG TAB PO SCH ×2 (09:12→20:21)
[2020-02-03] MEDS: Dexamethasone 4 mg/ml Vial SLOW IVP SCH (09:12)
[2020-02-03] MEDS: Famotidine 20 MG TAB PO SCH ×2 (09:12→20:21)
[2020-02-03] MEDS: Zinc Sulfate 220 MG CAP PO SCH (09:13)
[2020-02-03] MEDS: Enoxaparin Sodium 40 MG/0.4 ML SYRINGE SC SCH (09:13)
[2020-02-03] MEDS: Acetaminophen 500 MG TAB PO PRN ×3 (09:40→20:37)
[2020-02-03] MEDS: REMDESIVIR (EUA) 100 MG in Sodium Chloride 0.9% 250 ML 230 ML IV SCH (10:42)
[2020-02-03] MEDS: cefTRIAXone\\ROCEPHIN 2 GM in Sodium Chloride 0.9% 100 ML IVPB SCH (13:03)
[2020-02-03] MEDS: Azithromycin 500 MG in Sodium Chloride 0.9% 250 ML 250 ML IVPB SCH (14:23)
[2020-02-03] MEDS: Losartan 25 MG TAB PO SCH (20:21)
[2020-02-04] MEDS: Albuterol 200 PUFF (6.7GM INHALER) INH SCH ×6 (03:17→23:10)
[2020-02-04] MEDS: Carvedilol 3.125 MG TAB PO SCH ×2 (07:52→20:00)
[2020-02-04] MEDS: Ascorbic Acid 500 mg Chewable Tablet PO SCH (07:52)
[2020-02-04] MEDS: Famotidine 20 MG TAB PO SCH ×2 (07:52→19:59)
[2020-02-04] MEDS: Dexamethasone 4 mg/ml Vial SLOW IVP SCH (07:52)
[2020-02-04] MEDS: Zinc Sulfate 220 MG CAP PO SCH (07:53)
[2020-02-04] MEDS: Enoxaparin Sodium 40 MG/0.4 ML SYRINGE SC SCH (07:53)
[2020-02-04] MEDS: Acetaminophen 500 MG TAB PO PRN ×2 (08:14→18:30)
[2020-02-04] MEDS: REMDESIVIR (EUA) 100 MG in Sodium Chloride 0.9% 250 ML 230 ML IV SCH (10:54)
--- NOTE | 2020-02-04 11:36 | PDOC.HOSPP ---
- Subjective Encounter Date: 02/04/20 Encounter Time: 11:30 Subjective: f/u for COVID PNA on current Zithromax/Rocephin/Dexamethasone/Remdesivir/Vit C/Zinc/O2 @ 1.5L/min. - Objective Vital Signs & Weight: Vital Signs (12 hours) Temp Pulse Resp BP BP Pulse Ox 02/04/20 08:00 98 F 87 18 120/80 95 02/04/20 04:54 98.2 F 59 L 20 111/71 97 Weight Weight 201 lb 3.102 oz I&O: 02/03/20 02/04/20 02/05/20 06:59 06:59 06:59 Intake Total 860 810 Output Total 1700 Balance 860 -890 Result Diagrams: 02/02/20 09:00 02/03/20 05:38 Additional Labs: Laboratory Tests 02/02/20 02/02/20 02/02/20 09:00 09:00 09:00 D-Dimer 2.19 H Ferritin 941.06 H C-Reactive Protein 2.06 H 02/04/20 02/04/20 02/04/20 05:50 05:50 05:50 D-Dimer 2.05 H Ferritin 729.12 H C-Reactive Protein 2.48 H Hospitalist ROS - Medication Medications: Active Medications Generic Name Dose Route Start Last Admin Trade Name Freq PRN Reason Stop Dose Admin Acetaminophen 1,000 mg 01/30/20 13:19 02/04/20 08:14 Acetaminophen 500 Mg Tab PO 1,000 mg Q6H PRN Administration Mild Pain (1-3) Albuterol Sulfate 2 puff 01/31/20 10:30 02/04/20 10:54 Albuterol 200 Puff (6.7gm Inhaler) INH 2 puff [id number] PURVI Administration Ascorbic Acid 1,000 mg 01/31/20 09:00 02/04/20 07:52 Ascorbic Acid 500 Mg Chewable Tablet PO 1,000 mg DAILY PURVI Administration Benzonatate 100 mg 01/30/20 13:19 02/03/20 20:22 Benzonatate 100 Mg Cap PO 100 mg Q6H PRN Administration Cough Carvedilol 3.125 mg 01/30/20 21:00 02/04/20 07:52 Carvedilol 3.125 Mg Tab PO 3.125 mg BID PURVI Administration Dexamethasone 8 mg 01/31/20 09:00 02/04/20 07:52 Dexamethasone 4 Mg/Ml Vial SLOW IVP 8 mg DAILY PURVI Administration Enoxaparin Sodium 40 mg 01/31/20 09:00 02/04/20 07:53 Enoxaparin Sodium 40 Mg/0.4 Ml Syringe SC 40 mg 0900 PURVI Administration Famotidine 20 mg 01/30/20 21:00 02/04/20 07:52 Famotidine 20 Mg Tab PO 20 mg BID PURVI Administration Guaifenesin/Dextromethorphan 15 ml 01/30/20 13:19 02/02/20 16:47 Guaifenesin Dm 100-10/5 Ml Udcup PO 15 ml Q4H PRN Administration Cough Azithromycin 500 mg/ Sodium 250 mls @ 250 mls/hr 01/30/20 15:00 02/03/20 14:23 Chloride IVPB 250 mls Q24HR PURVI Administration Ceftriaxone Sodium 2 gm/ 100 mls @ 200 mls/hr 01/30/20 14:00 02/03/20 13:03 Sodium Chloride IVPB 100 mls Q24HR PURVI Administration Remdesivir 100 mg/ Sodium 250 mls @ 250 mls/hr 02/03/20 11:00 02/04/20 10:54 Chloride IV 02/06/20 11:59 250 mls 1100 PURVI Administration Losartan Potassium 100 mg 01/30/20 21:00 02/03/20 20:21 Losartan 25 Mg Tab PO 100 mg HS PURVI Administration Sodium Chloride 10 ml 02/02/20 21:00 02/04/20 07:53 Flush - Normal Saline 10 Ml Syringe IVF 10 ml Q12HR PURVI Administration Zinc Sulfate 220 mg 01/31/20 09:00 02/04/20 07:53 Zinc Sulfate 220 Mg Cap PO 220 mg DAILY PURVI Administration - Exam General Appearance: NAD, awake alert Eye: PERRL, anicteric sclera ENT: normocephalic atraumatic, no oropharyngeal lesions Neck: supple, symmetric, no JVD, no thyromegaly, no lymphadenopathy Heart: RRR, no murmur, no gallops, no rubs, normal peripheral pulses Heart - other findings: S1, S2 Respiratory: CTAB, no wheezes, no rales, no ronchi, normal chest expansion, no tachypnea Gastrointestinal: soft, non-tender, non-distended, normal bowel sounds, no palpable masses Extremities: no cyanosis, no clubbing, no edema Skin: normal turgor, no lesions Neurological: cranial nerve grossly intact, no new deficit Musculoskeletal: normal tone, normal strength, no muscle wasting Psychiatric: normal affect, A&O x 3 Hosp A/P (1) Pneumonia due to COVID-19 virus Code(s): U07.1 - COVID-19; J12.89 - OTHER VIRAL PNEUMONIA Status: Acute Plan: Continue Zithromax/Rocephin/Dexamethasone/Remdesivir/Vit C/Zinc, wean O2 as tolerated, OOB (2) Acute respiratory failure with hypoxia Code(s): J96.01 - ACUTE RESPIRATORY FAILURE WITH HYPOXIA Status: Acute Plan: See #1 above (3) Thrombocytopenia Code(s): D69.6 - THROMBOCYTOPENIA, UNSPECIFIED Status: Acute (4) HTN (hypertension) Code(s): I10 - ESSENTIAL (PRIMARY) HYPERTENSION Status: Chronic Qualifiers: Hypertension type: essential hypertension Qualified Code(s): I10 - Essential (primary) hypertension (5) HLD (hyperlipidemia) Code(s): E78.5 - HYPERLIPIDEMIA, UNSPECIFIED Status: Chronic - Plan continue antibiotics, director of business services, respiratory therapy, out of bed/ambulate, DVT proph w/SCDs Stable currently Continue Rocephin/Zithromax Change Albuterol MDI q4h OOB/ambulate Consider home O2 for d/c Continue Remdesivir Continue Dexamethasone AM lab: Ferritin, D-dimer, CRP Likely home in 48h after completion of Remdesivir
[2020-02-04] MEDS: cefTRIAXone\\ROCEPHIN 2 GM in Sodium Chloride 0.9% 100 ML IVPB SCH (14:04)
[2020-02-04] MEDS: Azithromycin 500 MG in Sodium Chloride 0.9% 250 ML 250 ML IVPB SCH (15:24)
[2020-02-04] MEDS: Losartan 25 MG TAB PO SCH (19:59)
[2020-02-04] MEDS: Guaifenesin DM 100-10/5 ML UDCUP PO PRN (20:02)
[2020-02-05] MEDS: Acetaminophen 500 MG TAB PO PRN ×3 (00:57→17:32)
[2020-02-05] MEDS: Albuterol 200 PUFF (6.7GM INHALER) INH SCH ×6 (02:48→22:06)
[2020-02-05] MEDS: Ascorbic Acid 500 mg Chewable Tablet PO SCH (08:06)
[2020-02-05] MEDS: Famotidine 20 MG TAB PO SCH ×2 (08:06→20:05)
[2020-02-05] MEDS: Zinc Sulfate 220 MG CAP PO SCH (08:07)
[2020-02-05] MEDS: Carvedilol 3.125 MG TAB PO SCH ×2 (08:07→20:06)
[2020-02-05] MEDS: Dexamethasone 4 mg/ml Vial SLOW IVP SCH (08:07)
[2020-02-05] MEDS: Enoxaparin Sodium 40 MG/0.4 ML SYRINGE SC SCH (08:07)
[2020-02-05] MEDS: REMDESIVIR (EUA) 100 MG in Sodium Chloride 0.9% 250 ML 230 ML IV SCH (12:10)
[2020-02-05] MEDS: cefTRIAXone\\ROCEPHIN 2 GM in Sodium Chloride 0.9% 100 ML IVPB SCH (13:44)
--- NOTE | 2020-02-05 15:31 | PDOC.HOSPP ---
- Subjective Encounter Date: 02/05/20 Encounter Time: 15:29 Subjective: Mr. Walker was seen today in follow-up of COVID pneumonia. He is sitting up in bed without oxygen. No complaints, and no trouble breathing. - Objective Vital Signs & Weight: Vital Signs (12 hours) Temp Pulse Resp BP Pulse Ox 02/05/20 12:31 94 L 02/05/20 09:00 98.1 F 74 18 124/74 94 L 02/05/20 08:00 95 02/05/20 05:23 66 18 97 02/05/20 04:34 97 Weight Weight 201 lb 3.102 oz I&O: 02/04/20 02/05/20 02/06/20 06:59 06:59 06:59 Intake Total 810 1000 Output Total 1700 1800 Balance -890 -800 Result Diagrams: 02/02/20 09:00 02/03/20 05:38 Hospitalist ROS - Medication Medications: Active Medications Generic Name Dose Route Start Last Admin Trade Name Freq PRN Reason Stop Dose Admin Acetaminophen 1,000 mg 01/30/20 13:19 02/05/20 10:32 Acetaminophen 500 Mg Tab PO 1,000 mg Q6H PRN Administration Mild Pain (1-3) Albuterol Sulfate 2 puff 01/31/20 10:30 02/05/20 10:48 Albuterol 200 Puff (6.7gm Inhaler) INH 2 puff [id number] PURVI Administration Ascorbic Acid 1,000 mg 01/31/20 09:00 02/05/20 08:06 Ascorbic Acid 500 Mg Chewable Tablet PO 1,000 mg DAILY PURVI Administration Benzonatate 100 mg 01/30/20 13:19 02/03/20 20:22 Benzonatate 100 Mg Cap PO 100 mg Q6H PRN Administration Cough Carvedilol 3.125 mg 01/30/20 21:00 02/05/20 08:07 Carvedilol 3.125 Mg Tab PO 3.125 mg BID PURVI Administration Dexamethasone 8 mg 01/31/20 09:00 02/05/20 08:07 Dexamethasone 4 Mg/Ml Vial SLOW IVP 8 mg DAILY PURVI Administration Enoxaparin Sodium 40 mg 01/31/20 09:00 02/05/20 08:07 Enoxaparin Sodium 40 Mg/0.4 Ml Syringe SC 40 mg 0900 PURVI Administration Famotidine 20 mg 01/30/20 21:00 02/05/20 08:06 Famotidine 20 Mg Tab PO 20 mg BID PURVI Administration Guaifenesin/Dextromethorphan 15 ml 01/30/20 13:19 02/04/20 20:02 Guaifenesin Dm 100-10/5 Ml Udcup PO 15 ml Q4H PRN Administration Cough Azithromycin 500 mg/ Sodium 250 mls @ 250 mls/hr 01/30/20 15:00 02/04/20 15:24 Chloride IVPB 250 mls Q24HR PURVI Administration Ceftriaxone Sodium 2 gm/ 100 mls @ 200 mls/hr 01/30/20 14:00 02/05/20 13:44 Sodium Chloride IVPB 100 mls Q24HR PURVI Administration Remdesivir 100 mg/ Sodium 250 mls @ 250 mls/hr 02/03/20 11:00 02/05/20 12:10 Chloride IV 02/06/20 11:59 250 mls 1100 PURVI Administration Losartan Potassium 100 mg 01/30/20 21:00 02/04/20 19:59 Losartan 25 Mg Tab PO 100 mg HS PURVI Administration Sodium Chloride 10 ml 02/02/20 21:00 02/05/20 08:07 Flush - Normal Saline 10 Ml Syringe IVF 10 ml Q12HR PURVI Administration Zinc Sulfate 220 mg 01/31/20 09:00 02/05/20 08:07 Zinc Sulfate 220 Mg Cap PO 220 mg DAILY PURVI Administration - Exam Eye: PERRL, anicteric sclera Heart: RRR, no murmur, no gallops, no rubs, normal peripheral pulses Respiratory: rales (+ fine crackles bilaterally, no wheezing or rhonchi) Gastrointestinal: soft, non-tender, non-distended, normal bowel sounds, no palp able masses, no hepatomegaly Extremities: no cyanosis, no edema (good d.p. pulses bi;aterally no lesions) Hosp A/P (1) Acute respiratory failure with hypoxia Code(s): J96.01 - ACUTE RESPIRATORY FAILURE WITH HYPOXIA Status: Acute (2) Pneumonia due to COVID-19 virus Code(s): U07.1 - COVID-19; J12.89 - OTHER VIRAL PNEUMONIA Status: Acute (3) HLD (hyperlipidemia) Code(s): E78.5 - HYPERLIPIDEMIA, UNSPECIFIED Status: Chronic (4) HTN (hypertension) Code(s): I10 - ESSENTIAL (PRIMARY) HYPERTENSION Status: Chronic Qualifiers: Hypertension type: essential hypertension Qualified Code(s): I10 - Essential (primary) hypertension - Plan * COVID pneumonia with respiratory failure- improving * He will receive his final dose of Remdesivir tomorrow * Continue Decadron * HTN- blood pressure is controlled * Hopefully home soon
[2020-02-05] MEDS: Azithromycin 500 MG in Sodium Chloride 0.9% 250 ML 250 ML IVPB SCH (15:33)
[2020-02-05] MEDS: Losartan 25 MG TAB PO SCH (20:05)
[2020-02-05] MEDS: Guaifenesin DM 100-10/5 ML UDCUP PO PRN (20:05)
[2020-02-06] MEDS: Acetaminophen 500 MG TAB PO PRN ×3 (00:34→21:07)
[2020-02-06] MEDS: Albuterol 200 PUFF (6.7GM INHALER) INH SCH ×6 (02:30→22:38)
[2020-02-06 06:08] LABS: #Eosinphils 0.1 thou/uL (0.0-0.7); #Lymphocytes 1.4 thou/uL (1.20-3.40); #Monocytes 0.7 thou/uL (0.11-0.59); #Neutrophils 6.1 thou/uL (1.40-6.50); %Basophils 0.1 % (0.0-1.0); %Eosinophils 0.6 % (0.0-10.0); %Lymphocytes 16.8 % (21.0-51.0); %Neutrophils 74.5 % (42.0-75.0); Hemoglobin 13.4 g/dL (14.0-18.0); Mean Corpuscular HGB CONC 34.2 g/dL (32.0-36.0); Mean Corpuscular Hemoglobin 34.8 pg (27.0-31.0); Mean Platelet Volume 7.1 fL (7.4-10.4); Platelet Count 299 thou/uL (130-400); RBC Distribution Width 10.8 % (11.5-14.5); Red Blood Cell (RBC) Count 3.84 mill/uL (4.70-6.10); White Blood Cell (WBC) Count 8.2 thou/uL (4.8-10.8)
[2020-02-06 06:28] LABS: Anion Gap 13 mmol/L (10-20); BUN (Urea Nitrogen) 17 mg/dL (8.4-25.7); CRP (Inflammatory) 0.81 mg/dL (= or < 0.5); Calc. Creatinine Clearance 102 mL/min (70-130); Calcium 8.1 mg/dL (7.8-10.44); Carbon Dioxide 21 mmol/L (23-31); Chloride 106 mmol/L (98-107); Glucose 88 mg/dL (80-115); Potassium 4.2 mmol/L (3.5-5.1); Sodium 136 mmol/L (136-145)
[2020-02-06] MEDS: Dexamethasone 4 mg/ml Vial SLOW IVP SCH (08:27)
[2020-02-06] MEDS: Ascorbic Acid 500 mg Chewable Tablet PO SCH (08:27)
[2020-02-06] MEDS: Carvedilol 3.125 MG TAB PO SCH ×2 (08:27→21:06)
[2020-02-06] MEDS: Enoxaparin Sodium 40 MG/0.4 ML SYRINGE SC SCH (08:27)
[2020-02-06] MEDS: Zinc Sulfate 220 MG CAP PO SCH (08:27)
[2020-02-06] MEDS: Famotidine 20 MG TAB PO SCH ×2 (08:27→21:06)
[2020-02-06] MEDS: REMDESIVIR (EUA) 100 MG in Sodium Chloride 0.9% 250 ML 230 ML IV SCH (11:56)
[2020-02-06] MEDS: cefTRIAXone\\ROCEPHIN 2 GM in Sodium Chloride 0.9% 100 ML IVPB SCH (14:35)
--- NOTE | 2020-02-06 14:49 | PDOC.HOSPP ---
- Subjective Encounter Date: 02/06/20 Encounter Time: 14:47 Subjective: Mr. Walker was seen today in follow-up of COVID pneumonia and respiratory failure. He admits to feeling better, he is not requiring oxygen, but is anxious about being discharged. - Objective Vital Signs & Weight: Vital Signs (12 hours) Temp Pulse Resp BP Pulse Ox 02/06/20 08:35 98.3 F 72 20 136/63 96 02/06/20 08:00 96 02/06/20 05:17 97 Weight Weight 201 lb 3.102 oz I&O: 02/05/20 02/06/20 02/07/20 06:59 06:59 06:59 Intake Total 1000 1500 Output Total 1800 1000 Balance -800 500 Result Diagrams: 02/06/20 05:29 02/06/20 05:29 Hospitalist ROS - Medication Medications: Active Medications Generic Name Dose Route Start Last Admin Trade Name Freq PRN Reason Stop Dose Admin Acetaminophen 1,000 mg 01/30/20 13:19 02/06/20 08:54 Acetaminophen 500 Mg Tab PO 1,000 mg Q6H PRN Administration Mild Pain (1-3) Albuterol Sulfate 2 puff 01/31/20 10:30 02/06/20 14:35 Albuterol 200 Puff (6.7gm Inhaler) INH 2 puff [id number] PURVI Administration Ascorbic Acid 1,000 mg 01/31/20 09:00 02/06/20 08:27 Ascorbic Acid 500 Mg Chewable Tablet PO 1,000 mg DAILY PURVI Administration Benzonatate 100 mg 01/30/20 13:19 02/03/20 20:22 Benzonatate 100 Mg Cap PO 100 mg Q6H PRN Administration Cough Carvedilol 3.125 mg 01/30/20 21:00 02/06/20 08:27 Carvedilol 3.125 Mg Tab PO 3.125 mg BID PURVI Administration Dexamethasone 8 mg 01/31/20 09:00 02/06/20 08:27 Dexamethasone 4 Mg/Ml Vial SLOW IVP 8 mg DAILY PURVI Administration Enoxaparin Sodium 40 mg 01/31/20 09:00 02/06/20 08:27 Enoxaparin Sodium 40 Mg/0.4 Ml Syringe SC 40 mg 0900 PURVI Administration Famotidine 20 mg 01/30/20 21:00 02/06/20 08:27 Famotidine 20 Mg Tab PO 20 mg BID PURVI Administration Guaifenesin/Dextromethorphan 15 ml 01/30/20 13:19 02/05/20 20:05 Guaifenesin Dm 100-10/5 Ml Udcup PO 15 ml Q4H PRN Administration Cough Azithromycin 500 mg/ Sodium 250 mls @ 250 mls/hr 01/30/20 15:00 02/05/20 15:33 Chloride IVPB 250 mls Q24HR PURVI Administration Ceftriaxone Sodium 2 gm/ 100 mls @ 200 mls/hr 01/30/20 14:00 02/06/20 14:35 Sodium Chloride IVPB 100 mls Q24HR PURVI Administration Losartan Potassium 100 mg 01/30/20 21:00 02/05/20 20:05 Losartan 25 Mg Tab PO 100 mg HS PURVI Administration Sodium Chloride 10 ml 02/02/20 21:00 02/06/20 08:27 Flush - Normal Saline 10 Ml Syringe IVF 10 ml Q12HR PURVI Administration Zinc Sulfate 220 mg 01/31/20 09:00 02/06/20 08:27 Zinc Sulfate 220 Mg Cap PO 220 mg DAILY PURVI Administration - Exam Eye: PERRL, anicteric sclera Heart: RRR, no murmur, no gallops, no rubs, normal peripheral pulses Respiratory: rales (+ faint rales at the bases, no wheezing or rhonchi) Gastrointestinal: soft, non-tender, non-distended, normal bowel sounds, no palpable masses, no hepatomegaly Extremities: no cyanosis, no edema Hosp A/P (1) Acute respiratory failure with hypoxia Code(s): J96.01 - ACUTE RESPIRATORY FAILURE WITH HYPOXIA Status: Acute (2) Pneumonia due to COVID-19 virus Code(s): U07.1 - COVID-19; J12.89 - OTHER VIRAL PNEUMONIA Status: Acute (3) HLD (hyperlipidemia) Code(s): E78.5 - HYPERLIPIDEMIA, UNSPECIFIED Status: Chronic (4) HTN (hypertension) Code(s): I10 - ESSENTIAL (PRIMARY) HYPERTENSION Status: Chronic Qualifiers: Hypertension type: essential hypertension Qualified Code(s): I10 - Essential (primary) hypertension - Plan * COVID pneumonia with respiratory failure- improving * He is currently receiving his final dose of Remdesivir * Continue Decadron * HTN- blood pressure is controlled * Home tomorrow if stable
[2020-02-06] MEDS: Azithromycin 500 MG in Sodium Chloride 0.9% 250 ML 250 ML IVPB SCH (15:59)
[2020-02-06] MEDS: Guaifenesin DM 100-10/5 ML UDCUP PO PRN (21:07)
[2020-02-06] MEDS: Losartan 25 MG TAB PO SCH (21:07)
[2020-02-07] MEDS: Albuterol 200 PUFF (6.7GM INHALER) INH SCH ×3 (02:35→09:52)
[2020-02-07] MEDS: Acetaminophen 500 MG TAB PO PRN (05:22)
[2020-02-07 08:39] LABS: Anion Gap 17 mmol/L (10-20); BUN (Urea Nitrogen) 20 mg/dL (8.4-25.7); CRP (Inflammatory) 0.52 mg/dL (= or < 0.5); Calc. Creatinine Clearance 95 mL/min (70-130); Calcium 8.2 mg/dL (7.8-10.44); Carbon Dioxide 20 mmol/L (23-31); Chloride 105 mmol/L (98-107); Glucose 99 mg/dL (80-115); Potassium 4.7 mmol/L (3.5-5.1); Sodium 137 mmol/L (136-145)
[2020-02-07] MEDS: Zinc Sulfate 220 MG CAP PO SCH (09:51)
[2020-02-07] MEDS: Carvedilol 3.125 MG TAB PO SCH (09:51)
[2020-02-07] MEDS: Dexamethasone 4 mg/ml Vial SLOW IVP SCH (09:51)
--- NOTE | 2020-02-07 09:51 | PDOC.HOSPP ---
- Subjective Encounter Date: 02/07/20 Encounter Time: 09:49 Subjective: Mr. Walker was seen today in follow-up of COVID pneumonia. He is feeling much better. He has been off supplemental oxygen for several days now. - Objective Vital Signs & Weight: Weight Weight 201 lb 3.102 oz I&O: 02/06/20 02/07/20 02/08/20 06:59 06:59 06:59 Intake Total 1500 1350 Output Total 1000 Balance 500 1350 Result Diagrams: 02/06/20 05:29 02/07/20 05:35 Hospitalist ROS - Medication Medications: Active Medications Generic Name Dose Route Start Last Admin Trade Name Freq PRN Reason Stop Dose Admin Acetaminophen 1,000 mg 01/30/20 13:19 02/07/20 05:22 Acetaminophen 500 Mg Tab PO 1,000 mg Q6H PRN Administration Mild Pain (1-3) Albuterol Sulfate 2 puff 01/31/20 10:30 02/07/20 06:32 Albuterol 200 Puff (6.7gm Inhaler) INH 2 puff [id number] PURVI Administration Ascorbic Acid 1,000 mg 01/31/20 09:00 02/06/20 08:27 Ascorbic Acid 500 Mg Chewable Tablet PO 1,000 mg DAILY PURVI Administration Benzonatate 100 mg 01/30/20 13:19 02/03/20 20:22 Benzonatate 100 Mg Cap PO 100 mg Q6H PRN Administration Cough Carvedilol 3.125 mg 01/30/20 21:00 02/06/20 21:06 Carvedilol 3.125 Mg Tab PO 3.125 mg BID PURVI Administration Dexamethasone 8 mg 01/31/20 09:00 02/06/20 08:27 Dexamethasone 4 Mg/Ml Vial SLOW IVP 8 mg DAILY PURVI Administration Enoxaparin Sodium 40 mg 01/31/20 09:00 02/06/20 08:27 Enoxaparin Sodium 40 Mg/0.4 Ml Syringe SC 40 mg 0900 PURVI Administration Famotidine 20 mg 01/30/20 21:00 02/06/20 21:06 Famotidine 20 Mg Tab PO 20 mg BID PURVI Administration Guaifenesin/Dextromethorphan 15 ml 01/30/20 13:19 02/06/20 21:07 Guaifenesin Dm 100-10/5 Ml Udcup PO 15 ml Q4H PRN Administration Cough Azithromycin 500 mg/ Sodium 250 mls @ 250 mls/hr 01/30/20 15:00 02/06/20 15:59 Chloride IVPB 250 mls Q24HR PURVI Administration Ceftriaxone Sodium 2 gm/ 100 mls @ 200 mls/hr 01/30/20 14:00 02/06/20 14:35 Sodium Chloride IVPB 100 mls Q24HR PURVI Administration Losartan Potassium 100 mg 01/30/20 21:00 02/06/20 21:07 Losartan 25 Mg Tab PO 100 mg HS PURVI Administration Sodium Chloride 10 ml 02/02/20 21:00 02/06/20 21:21 Flush - Normal Saline 10 Ml Syringe IVF 10 ml Q12HR PURVI Administration Zinc Sulfate 220 mg 01/31/20 09:00 02/06/20 08:27 Zinc Sulfate 220 Mg Cap PO 220 mg DAILY PURVI Administration - Exam Eye: PERRL, anicteric sclera Heart: RRR, no murmur, no gallops, no rubs, normal peripheral pulses Respiratory: rales (very faint, no wheezing or rhonchi) Gastrointestinal: soft, non-tender, non-distended, normal bowel sounds, no palpable masses, no hepatomegaly Extremities: no cyanosis, no clubbing, no edema (good d.p. pulses bilaterally, no lesions) Hosp A/P (1) Acute respiratory failure with hypoxia Code(s): J96.01 - ACUTE RESPIRATORY FAILURE WITH HYPOXIA Status: Acute (2) Pneumonia due to COVID-19 virus Code(s): U07.1 - COVID-19; J12.89 - OTHER VIRAL PNEUMONIA Status: Acute (3) HLD (hyperlipidemia) Code(s): E78.5 - HYPERLIPIDEMIA, UNSPECIFIED Status: Chronic (4) HTN (hypertension) Code(s): I10 - ESSENTIAL (PRIMARY) HYPERTENSION Status: Chronic Qualifiers: Hypertension type: essential hypertension Qualified Code(s): I10 - Essential (primary) hypertension - Plan * COVID pneumonia with respiratory failure- improving * He has completed a full course of Remdesivir * His D- Dimer level has fallen significantly * Home today
[2020-02-07] MEDS: Ascorbic Acid 500 mg Chewable Tablet PO SCH (09:52)
[2020-02-07] MEDS: Famotidine 20 MG TAB PO SCH (09:52)
[2020-02-07] MEDS: Enoxaparin Sodium 40 MG/0.4 ML SYRINGE SC SCH (09:52)
[2020-02-07 11:09] VITALS: TEMP 98
[2020-02-07 11:53] VITALS: BP 125/72
--- NOTE | 2020-02-08 01:56 | DIS ---
DATE OF ADMISSION: 01/30/2020 DATE OF DISCHARGE: 02/07/2020 DISCHARGE DISPOSITION: Home. DISCHARGE DIAGNOSES: 1. Acute respiratory failure with hypoxemia. 2. COVID-19 infection. 3. Hypertension. 4. Hyperlipidemia. 5. Possible sleep apnea. 6. Lumbar disk disease. DISCHARGE MEDICATIONS: Include: 1. Decadron 4 mg p.o. daily for 4 days. 2. Zinc sulfate 220 mg p.o. daily. 3. Tramadol 50 mg as needed. 4. Tizanidine 4 mg p.o. q.i.d. as needed. 5. [place] 10/325 one tablet q.6 as needed. 6. Meloxicam 15 mg p.o. daily. 7. Glucosamine 1 tablet at bedtime. 8. [place]-3 DHEA-EPA fish oil 2000 mg p.o. b.i.d. 9. Carvedilol 3.125 mg p.o. b.i.d. 10. Candesartan 32 mg p.o. daily. 11. Atorvastatin 10 mg p.o. daily. 12. Aspirin 81 mg p.o. daily. CODE STATUS: Full code. ALLERGIES: NO KNOWN DRUG ALLERGIES. HOSPITAL COURSE: Mr. Walker is a pleasant 70-year-old gentleman, who had a known history of testing positive for COVID-19 on 01/27/2020. He had originally been feeling okay, but began getting short of breath and came to the ER. He was found to be hypoxic with his oxygen saturations in the mid 80s. He was admitted and started on Remdesivir. He did quite well, and after a couple of doses of the Remdesivir, he did not require any additional supplemental oxygen, was able to be weaned off another words. He completed the course of Remdesivir and we have monitored him 1 more day in the hospital. Inflammatory markers are trending down, and as a result, he was discharged home. He will quarantine to complete 14 days from his test result since he believes that he may have had symptoms even before his test and will need to have close outpatient followup. Job ID: [id number]
== END 2020-02-07 14:13 | disposition home or self-care (01) | DRG 177 ==
LOC: ERS 07:25 → ERHOLD 09:25 → T4-A 12:30
PROVIDERS: ADMIT Family Medicine; ATTEND Family Medicine
PROC: 8E0ZXY6 Isolation (ICD-10-PCS; principal; 2020-01-30)
PROC: XW033E5 Introduction of Remdesivir Anti-infective into Peripheral Vein, Percutaneous Approach, New Technology Group 5 (ICD-10-PCS; 2020-02-02)
DX: U07.1 COVID-19 (principal); J96.01 Acute respiratory failure with hypoxia; J12.89 Other viral pneumonia; I10 Essential (primary) hypertension; E78.5 Hyperlipidemia, unspecified; G47.33 Obstructive sleep apnea (adult) (pediatric); M51.36 Other intervertebral disc degeneration, lumbar region; D69.6 Thrombocytopenia, unspecified; Z79.899 Other long term (current) drug therapy; Z79.52 Long term (current) use of systemic steroids; Z79.51 Long term (current) use of inhaled steroids; Z79.82 Long term (current) use of aspirin; Z82.49 Family history of ischemic heart disease and other diseases of the circulatory system
CPT/HCPCS: 36415; 71045; 80048; 80053; 82728; 83605; 84484; 85025; 85379; 86140; 93005; 94760; 96374; J0456; J0696; J1100; J1650; J3490; J7050

== ENCOUNTER 2020-03-29 10:12 | Outpatient (CLI) | payer MEDICARE ==
--- NOTE | 2020-03-29 10:59 | RAD ---
XR Chest Pa Lat STANDARD History: Covid 19 pneumonia Comparison: Radiograph February 14, 2020 Findings: Slight improved aeration of the lungs although peripheral scarring does persist. No pneumot horax. Heart size is enlarged. No acute osseous abnormality. Impression: Slight improved lung aeration with some peripheral pleural and parenchymal scarring [facility] prees.
== END 2020-03-29 10:13 | disposition home or self-care (01) ==
LOC: RAD 10:12
PROVIDERS: ATTEND Family Medicine
DX: U07.1 COVID-19 (principal); J98.4 Other disorders of lung
CPT/HCPCS: 71046

== ENCOUNTER 2020-12-20 09:13 | Outpatient (CLI) | payer MEDICARE ==
[2020-12-20] MEDS ORDERED: Iopamidol-370 76% 500 ML 1 ML ONE (09:27)
== END 2020-12-20 09:14 | disposition home or self-care (01) ==
LOC: BICCT 09:13
PROVIDERS: ATTEND Family Medicine
DX: R10.32 Left lower quadrant pain (principal); K57.30 Diverticulosis of large intestine without perforation or abscess without bleeding
CPT/HCPCS: 74177; Q9967

== ENCOUNTER 2021-08-21 14:13 | Outpatient (CLI) | payer MEDICARE | END 2021-08-21 14:14 | disposition home or self-care (01) | LOC: BICRAD 14:13 | PROVIDERS: ATTEND Internal Medicine Rheumatology | DX: M19.011 Primary osteoarthritis, right shoulder (principal) ==

== ENCOUNTER 2021-11-28 09:50 | Outpatient (CLI) | payer MEDICARE ==
[2021-11-28 14:42] LABS: #Eosinphils 0.3 thou/uL (0.0-0.7); #Lymphocytes 2.9 thou/uL (1.20-3.40); #Monocytes 0.7 thou/uL (0.11-0.59); #Neutrophils 3.3 thou/uL (1.40-6.50); %Basophils 0.4 % (0.0-1.0); %Lymphocytes 40.8 % (21.0-51.0); %Monocytes 9.2 % (0.0-10.0); %Neutrophils 45.7 % (42.0-75.0); Hemoglobin 14.6 g/dL (14.0-18.0); Mean Corpuscular HGB CONC 33.4 g/dL (32.0-36.0); Mean Corpuscular Hemoglobin 34.1 pg (27.0-31.0); Mean Platelet Volume 7.9 fL (7.4-10.4); Platelet Count 191 thou/uL (130-400); RBC Distribution Width 10.9 % (11.5-14.5); Red Blood Cell (RBC) Count 4.29 mill/uL (4.70-6.10); White Blood Cell (WBC) Count 7.2 thou/uL (4.8-10.8)
[2021-11-28 15:02] LABS: Bilirubin Negative (Negative); Blood, Urine Negative (Negative); Glucose, Urine (Dipstick) Normal (Negative); Ketone, Urine Negative (Negative); Leukocyte Negative Leu/uL (Negative); Nitrite Negative (Negative); Protein, Urine (Dipstick) Negative (Neg-Trace); Specific Gravity, Urine 1.022 (1.002-1.036); Urobilinogen Normal mg/dL (Less than 2); pH, Urine 5.5 (5.0-9.0)
[2021-11-28 15:11] LABS: Clarity Hazy (Clear)
[2021-11-28 15:18] LABS: Prothrombin Time 12.8 sec (12.0-14.7)
[2021-11-28 18:29] LABS: ALT (SGPT) 22 U/L (8-55); AST (SGOT) 17 U/L (5-34); Albumin 4.2 g/dL (3.4-4.8); Alkaline Phosphatase 65 U/L (40-110); Anion Gap 12 mmol/L (10-20); BUN (Urea Nitrogen) 19 mg/dL (8.4-25.7); Bilirubin, Total 0.5 mg/dL (0.2-1.2); Calc. Creatinine Clearance 0 mL/min (70-130); Carbon Dioxide 26 mmol/L (23-31); Cardiac Risk 3.4 (Less than 4.5); Chloride 106 mmol/L (98-107); Cholesterol 145 mg/dl (< 200 Desired); Estimated GFR 62; Globulin 2.4 g/dL (2.4-3.5); Glucose 113 mg/dL (80-115); HDL Cholesterol 43 mg/dL (>60 Neg Risk); LDL Cholesterol, Calculated 79 mg/dL; Potassium 4.5 mmol/L (3.5-5.1); Protein, Total 6.6 g/dL (5.8-8.1); Sodium 139 mmol/L (136-145); Triglycerides 117 mg/dL (Less than 150)
[2021-11-28 18:36] LABS: Free T4 (Free Thyroxine) 0.85 ng/dL (0.70-1.48); Thyroid Stimulating Hormone 1.3718 uIU/mL (0.35-4.94)
== END 2021-11-28 09:51 | disposition home or self-care (01) ==
LOC: SCSRAD 09:50
PROVIDERS: ATTEND Family Medicine
DX: Z01.818 Encounter for other preprocedural examination (principal)
CPT/HCPCS: 36415; 71046; 80053; 80061; 81003; 84439; 84443; 85025; 85610; 85730

== ENCOUNTER 2022-06-21 06:46 | Day surgery (SDC) | payer MEDICARE ==
[2022-06-20 11:20] VITALS: BMI 31.4
[2022-06-21] MEDS ORDERED: PROPOFOL 200 MG/20 ML VIAL ONE (09:14)
[2022-06-21] MEDS ORDERED: Lidocaine 1% PF 5 ML VIAL ONE (09:14)
== END 2022-06-21 10:21 | disposition home or self-care (01) ==
LOC: SDC 06:46
PROVIDERS: ATTEND Internal Medicine Gastroenterology
PROC: 0DJD8ZZ Inspection of Lower Intestinal Tract, Via Natural or Artificial Opening Endoscopic (ICD-10-PCS; principal; 2022-06-21)
DX: Z12.11 Encounter for screening for malignant neoplasm of colon (principal); K57.30 Diverticulosis of large intestine without perforation or abscess without bleeding; K64.8 Other hemorrhoids; I10 Essential (primary) hypertension; M19.90 Unspecified osteoarthritis, unspecified site; I42.9 Cardiomyopathy, unspecified; E78.5 Hyperlipidemia, unspecified; Z80.0 Family history of malignant neoplasm of digestive organs; Z86.16 Personal history of COVID-19; Z79.82 Long term (current) use of aspirin; Z79.899 Other long term (current) drug therapy
CPT/HCPCS: J2704